=== PATIENT | female | born 1980 | race Caucasian/White ===

== ENCOUNTER 2023-04-22 17:29 | Emergency (ER) | payer OTHER, SELFPAY ==
[2023-04-22 17:30] VITALS: BP 183/118
[2023-04-22 17:46] VITALS: BP 138/112
[2023-04-22 18:00] VITALS: BP 140/84
[2023-04-22 18:36] LABS: ALT (SGPT) 18 U/L (0-35); AST (SGOT) 27 U/L (14-36); Albumin 4.7 g/dl (3.5-5.0); Alkaline Phosphatase 65 U/L (38-126); Blood Urea Nitrogen 10 mg/dl (7-17); Calcium 9.7 mg/dl (8.4-10.2); Carbon Dioxide 27 mmol/L (22-30); Chloride 100 mmol/L (98-107); Glucose 110 mg/dl (70-99); Potassium 3.7 mmol/L (3.5-5.1); Sodium 137 mmol/L (135-145); Total Bilirubin 0.3 mg/dl (0.2-1.3); Total Protein 7.8 g/dl (6.3-8.2); eGFR > 60.00
[2023-04-22 18:40] LABS: % Basophils 0.5 % (0-2); % Eosinophils 0.3 % (0-6); % Immature Granulocytes 0.3 % (0-0.5); % Lymphocytes 32.3 % (20.5-51.1); % Monocytes 3.8 % (1.7-9.3); % Neutrophils 62.8 % (42.2-75.2); Absolute Basophils 0.1 10^3/uL (0-0.2); Absolute Monocytes 0.4 10^3/uL (0.1-0.6); Absolute Neutrophils 5.7 10^3/uL (1.4-6.5); Hematocrit 39.8 % (37.0-47.0); Hemoglobin 13.6 g/dL (12.0-16.0); Mean Corp Hgb Conc. 34.2 g/dL (33.0-37.0); Mean Corpuscular Hgb 30.7 pg (27.0-31.0); Mean Corpuscular Volume 89.8 fL (81.0-99.0); Mean Platelet Volume 11.7 fL (7.4-10.4); Nucleated Red Blood Cells % 0 %; Platelet Count 242 10^3/uL (130-400); Red Blood Cell Count 4.43 10^6/uL (4.20-5.40); Red Cell Dist. Width 11.9 % (11.5-14.5); White Blood Cell Count 9.1 10^3/uL (4.8-10.8)
--- NOTE | 2023-04-22 19:31 | ED.GENMED ---
History of Present Illness
General
Chief Complaint: Allergic Reaction
Source: patient
Time Seen by Provider: 04/22/23 19:20
Travel History
Have you had any contact with someone who has COVID-19?: No
Do you have any symptoms of coronavirus? Fever > 100 degrees, chills, cough, shortness of breath, sore throat, loss of taste or smell, muscle aches, or headache?: No
History of Present Illness
History of Present Illness:
This patient is a 42-year-old female who states that about 2 months ago she developed a 'ingrown hair' in her vulvar area and was prescribed Bactrim which helped her symptoms. However, about a week or so ago the symptoms came back and she was
prescribed doxycycline which did not improve her symptoms. She was then told by her [employer] to transition to Bactrim which she started again about a week ago. On Wednesday she noted generalized hives and intense pruritus, saw her PCP, and was instructed
to discontinue the Bactrim. She was put on a Medrol Dosepak starting at 24 mg and prescribed Keflex. She started the steroids on Wednesday and is taking them as prescribed. She saw her PCP again yesterday because she was not improving. Today she
noticed that she felt a little bit better after taking a shower and that the hives had 'calm down', but then later today noticed facial swelling including in her lips. She no longer feels that her lips are swollen. She denies ever having the
experience of tongue swelling, foreign body sensation in her throat, trouble breathing, trouble swallowing, drooling, change in voice, chest pain, dyspnea, abdominal pain, nausea, vomiting, fever, chills.
Past History
Past History
ED Past Medical History: None
ED Past Surgical History: Tonsilectomy and Other (Breast)
Social History
Tobacco: Smoker
Alcohol: Occasional
Drug: Marijuana
Living: with family
Phy Exam
Physical Exam
Physical Exam:
GENERAL: Alert , in no apparent distress
EYE: pupils equal and reactive
NECK: Supple, no significant adenopathy.
ENT: o/p clr, mmm, voice clear, no trismus, no drool, no stridor. No lip or tongue swelling appreciated. Potential questionable vague periorbital swelling..
CARDIAC: Regular rate and rhythm .
LUNGS: Clear breath sounds bilaterally, no acute respiratory distress, no wheezes/rales/rhonchi
ABDOMEN: Soft, without focal tenderness, no r/g, no cvat
NEUROLOGICAL: Alert and oriented, no focal neuro deficits
SKIN: Warm and dry, skin intact with extensive hives involving torso and upper and lower extremity. No hives noted on face or throat.
MUSCULOSKELETAL: No edema, well perfused.
PSYCH: Normal and appropriate interaction.
Course
Orders/Labs/Results
Orders:
Orders
04/22/23 17:57
CMP [Comprehensive Metabolic Panel] Urgent
Complete Blood Count/With Diff Urgent
04/22/23 19:30
Cardiac Monitoring- Treatment ONCE
Dexamethasone Sod Phosphate [Decadron] 10 mg IV NOW STA
Diphenhydramine [Benadryl] 50 mg IV NOW STA
Famotidine [Pepcid] 20 mg IV NOW STA
Pulse Ox/cont/shift [RESP] Stat
Quantity: 1
Abnormal Lab Results
04/22/23
17:57
MPV 11.7 H fL
(7.4-10.4)
Creatinine 0.5 L mg/dL
(0.6-1.0)
Glucose 110 H mg/dl
(70-99)
04/22/23 17:57
04/22/23 17:57
Vital Signs
Initial and Last Documented VS:
Initial Vital Signs
Temp Pulse Resp BP Pulse Ox
98.5 F 94 18 183/118 98
04/22/23 17:30 04/22/23 17:30 04/22/23 17:30 04/22/23 17:30 04/22/23 17:30
Last Documented Vital Signs
Temp Pulse Resp BP Pulse Ox
98.5 F 81 14 140/84 96
04/22/23 17:30 04/22/23 18:30 04/22/23 18:30 04/22/23 18:00 04/22/23 18:30
*Critical Care Note
Total Time (30-74mins, 75-104mins- exclusive of procedures): Not Applicable
Update Note
Update Note:
Patient presents to the Emergency Department with __hives pruritus and facial swelling
Number and Complexity of Problems Addressed at the Encounter
� Chronic conditions affecting care:
� Acute Exacerbation and/or Progression of Chronic Illness:
� Differential Diagnosis includes: But not limited to medication reaction/allergy, idiopathic urticaria, etc.
Amount and/or Complexity of Data to be Reviewed and Analyzed
� I performed an independent evaluation of and my interpretation is:
EKG:
CT:
Xrays:
Laboratory Studies:
Other:
� Review of other/old records reveals:
� Clinical information was obtained by an independent historian:
� Prescriptions/Medications Considered but not given:
� Further testing considered but not performed:
Risk of Complications and/or Morbidity or Mortality of Patient Management
� Social determinants of health affecting care:
� Discussion with other providers (PCP, Hospitalists, Consultants, etc):
� Escalation of care including admission/observation vs risk of discharge considered: 854 pm pt sleeping, upon awakening, marked reduction in hives, no facial swelling noted/perceived, no angioedema. D/w pt import of f/u
(allergy and pcp), how to take meds, reasons to rted.
ED Attending Note
-
Portions of this chart may have been created with voice recognition software.� Occasional wrong word or��sound alike� substitutions may have occurred due to the inherent limitations of voice recognition software.
Discharge Plan
Departure
Patient Disposition: Home (Routine Discharge)
Date of Disposition: 04/22/23
Time of Disposition: 20:55
Patient with high blood pressure during this ER visit?: Yes
Condition: Good
Discharge Problem:
Urticaria
Instructions: Hives (DC), BLOOD PRESSURE
Prescriptions:
New
epinephrine [EpiPen] 0.3 mg/0.3 mL auto-injector
0.3 mg IM ONCE Qty: 2 0RF
loratadine [Claritin] 10 mg tablet
10 mg PO DAILY Qty: 30 0RF
diphenhydramine HCl [Benadryl] 25 mg capsule
25 mg PO TID PRN (Reason: itching) Qty: 30 0RF
Rx Instructions:
take 1-2 tabs (25-50 mg) tid prn
prednisone 10 mg tablet
10 mg PO DIRECTED Qty: 25 0RF
Rx Instructions:
50mg poX1d, then 40mg poX2d, then 30 mg poX2d, then 20 [id number], then 10 [id number] then d/c
Referrals:
Lv Platt MD [[facility]] - Next open appointment
Blair Dodge DO [Family Provider] -
Activity Restrictions/Additional Instructions:
IF YOU DEVELOP THROAT TIGHTNESS, LIP/TONGUE SWELLING, CHEST PAIN, TROUBLE BREATHING, VOMITING, INCREASING/NEW/PERSISTENT HIVES OR OTHER WORRISOME SIGNS, GO TO THE ER IMMEDIATELY!
Interventions
Interventions:
*Risk Screen - Suicide Last Done: 04/22/23 17:30
*General Assessment Last Done: 04/22/23 17:30
*Neglect/Abuse Screening Last Done: 04/22/23 17:30
*ED COVID-19 Vaccine History Last Done: 04/22/23 17:30
ED- Cardiac Assessment Last Done: 04/22/23 18:02
ED- Pulmonary Assessment Last Done: 04/22/23 18:02
ED-Skin Assessment Last Done: 04/22/23 18:02
[2023-04-22] MEDS: DECADRON 10 MG IV (19:36)
[2023-04-22] MEDS: BENADRYL 50 MG IV (19:36)
[2023-04-22] MEDS: PEPCID 20 MG IV (19:37)
[2023-04-22 19:43] VITALS: BP 137/89
[2023-04-22 21:06] VITALS: BP 114/76
== END 2023-04-22 21:15 | disposition home or self-care (01) ==
LOC: EMR 17:29
PROVIDERS: Emergency Medicine; EMERGENCY PHYSICIAN Emergency Medicine; FAMILY PHYSICIAN Family Medicine
DX: L50.0 Allergic urticaria (principal); R03.0 Elevated blood-pressure reading, without diagnosis of hypertension; F17.200 Nicotine dependence, unspecified, uncomplicated
CPT/HCPCS: 99284; 96374; 96375 ×2; 80053; 85025